=== PATIENT | male | born 1975 | race Caucasian/White ===

== ENCOUNTER 2017-05-20 12:00 | Emergency (ER) | payer OTHER ==
[2017-05-20 12:27] VITALS: RESP 18
[2017-05-20] MEDS ORDERED: LORazepam 2 MG/ML INJ IVP ONE (13:23)
[2017-05-20] MEDS ORDERED: ONDANSETRON 4 MG/2 ML VIAL IVP ONE (13:24)
[2017-05-20] MEDS ORDERED: NS 1,000 ML IV ONE (13:24)
--- NOTE | 2017-05-20 13:31 | EDPHY ---
H & P Smoking Status: Never smoked Time Seen by Provider: 05/20/17 12:56 HPI/ROS: CHIEF COMPLAINT: Alcohol withdrawal, vomiting HISTORY OF PRESENT ILLNESS: 42-year-old male presents to the emergency department with alcohol withdrawal. Patient has been drinking heavily over the last week. He he typically drinks a 5th of whiskey. He last drank yesterday morning. He has been vomiting since 7 o'clock this morning. He wishes to stop drinking alcohol. He has had alcohol withdrawal seizure in the past. He feels tremulous, nausea and pain all over. No reported trauma. He denies any other substance abuse. He denies chest pain or difficulty breathing. Denies abdominal pain. He still feels slightly nauseous. He last vomited at 10 o' clock this morning. REVIEW OF SYSTEMS: Constitutional: No fever, no chills. Eyes: No double or blurry vision. ENT: No sore throat. Respiratory: No cough, no shortness of breath. Cardiac: No chest pain. Gastrointestinal: Vomiting as above. No diarrhea or abdominal pain. Genitourinary: No dysuria. Musculoskeletal: No neck or back pain. Skin: No rashes. Neurological: No headache. (Ashanti Lamar) Past Medical/Surgical History: Alcoholism (Ashanti Lamar) Social History: (Ashanti Lamar) Physical Exam: General Appearance: Alert, no distress. Tremulous. Family at bedside. Eyes: Pupils equal and round. Extraocular motions are all intact. ENT: Mouth: Mucous membranes dry. Respiratory: No wheezing, rhonchi, or rales, lungs are clear to auscultation. Cardiovascular: Regular rate and rhythm. Gastrointestinal: Abdomen is soft and nontender, no masses, no rebound or guarding, bowel sounds normal. Neurological: Alert and oriented x 3, cranial nerves II through XII grossly intact Skin: Warm and dry, no rashes. Musculoskeletal: Nontender to palpate along the cervical, thoracic or lumbar spine. Neck is supple. Extremities: Full range of motion and no peripheral edema. Psychiatric: Patient is oriented X 3, there is no agitation. (Ashanti Lamar) Constitutional: Initial Vital Signs Temperature (C) 36.5 C 05/20/17 12:25 Heart Rate 89 05/20/17 12:25 Respiratory Rate 18 05/20/17 12:25 Blood Pressure 155/107 H 05/20/17 12:25 O2 Sat (%) 98 05/20/17 12:25 O2 Delivery Mode Room Air Allergies/Adverse Reactions: No Known Allergies Allergy (Verified 09/12/15 23:45) Home Medications: Medication Instructions Recorded LORazepam [Ativan] 1 mg PO Q6-8PRN PRN #10 tab 05/20/17 Propranolol HCl 05/20/17 Medical Decision Making ED Course/Re-evaluation: The patient was evaluated and managed by the physician's assistant county engineer. My cosignature indicates that I reviewed the chart and I agree with the findings and plan of care as documented. I am the secondary supervising physician. ( Princess Ochoa) Patient had IV established and laboratory studies were drawn. He received 1 mg of Ativan IV, 4 mg of Zofran IV and IV normal saline. The patient was tolerating p.o. fluids. Laboratory studies were unremarkable. He does not want to be discharged to the addiction recovery Center. He is comfortable being discharged home. (Ashanti Lamar) Differential Diagnosis: Including but not limited to alcohol withdrawal, electrolyte abnormality, dehydration (Ashanti Lamar) - Data Points Laboratory Results: Laboratory Results 05/20/17 13:40 05/20/17 13:40 05/20/17 05/20/17 05/20/17 13:40 13:40 13:40 WBC 15.06 10^3/uL H 10^3/uL (3.80-9.50) RBC 5.50 10^6/uL 10^6/uL (4.40-6.38) Hgb 16.3 g/dL g/dL (13.7-17.5) Hct 45.7 % % (40.0-51.0) MCV 83.1 fL fL (81.5-99.8) MCH 29.6 pg pg (27.9-34.1) MCHC 35.7 g/dL g/dL (32.4-36.7) RDW 12.9 % % (11.5-15.2) Plt Count 188 10^3/uL 10^3/uL (150-400) MPV 9.7 fL fL (8.7-11.7) Neut % (Auto) 86.3 % H % (39.3-74.2) Lymph % (Auto) 7.2 % L % (15.0-45.0) [place] % (Auto) 5.6 % % (4.5-13.0) Eos % (Auto) 0.3 % L % (0.6-7.6) Baso % (Auto) 0.3 % % (0.3-1.7) Nucleat RBC Rel Count 0.0 % % (0.0-0.2) Absolute Neuts (auto) 13.00 10^3/uL H 10^3/uL (1.70-6.50) Absolute Lymphs (auto) 1.08 10^3/uL 10^3/uL (1.00-3.00) Absolute Monos (auto) 0.85 10^3/uL H 10^3/uL (0.30-0.80) Absolute Eos (auto) 0.04 10^3/uL 10^3/uL (0.03-0.40) Absolute Basos (auto) 0.04 10^3/uL 10^3/uL (0.02-0.10) Absolute Nucleated RBC 0.00 10^3/uL 10^3/uL (0-0.01) Immature Gran % 0.3 % % (0.0-1.1) Immature Gran # 0.05 10^3/uL 10^3/uL (0.00-0.10) PT 13.4 SEC SEC (12.0-15.0) INR 1.03 (0.83-1.16) APTT 32.6 SEC SEC (23.0-38.0) Sodium 135 mEq/L mEq/L (134-144) Potassium 4.3 mEq/L mEq/L (3.5-5.2) Chloride 98 mEq/L mEq/L (97-110) Carbon Dioxide 25 mEq/l mEq/l (22-31) Anion Gap 12 mEq/L mEq/L (8-16) BUN 14 mg/dL mg/dL (7-23) Creatinine 0.6 mg/dL L mg/dL (0.7-1.3) Estimated GFR > 60 Glucose 114 mg/dL H mg/dL (70-100) Calcium 9.4 mg/dL mg/dL (8.5-10.4) Total Bilirubin 2.1 mg/dL H mg/dL (0.1-1.4) Conjugated Bilirubin 0.3 mg/dL mg/dL (0.0-0.5) Unconjugated Bilirubin 1.8 mg/dL H mg/dL (0.0-1.1) AST 42 IU/L IU/L (17-59) ALT 59 IU/L IU/L (21-72) Alkaline Phosphatase 77 IU/L IU/L (38-126) Total Protein 7.6 g/dL g/dL (6.3-8.2) Albumin 4.6 g/dL g/dL (3.5-5.0) Ethyl Alcohol < 10 mg/dL mg/dL (0-10) Medications Given: Discontinued Medications Sodium Chloride (Ns) 1,000 mls @ 0 mls/hr IV EDNOW ONE; Wide Open PRN Reason: Protocol Stop: 05/20/17 13:25 Last Admin: 05/20/17 13:49 Dose: 1,000 mls Lorazepam (Ativan Injection) 1 mg IVP EDNOW ONE Stop: 05/20/17 13:24 Last Admin: 05/20/17 13:49 Dose: 1 mg Ondansetron HCl (Zofran) 4 mg IVP EDNOW ONE Stop: 05/20/17 13:25 Last Admin: 05/20/17 13:48 Dose: 4 mg Departure - Departure Disposition: Home, Routine, Self-Care Clinical Impression: Alcoholic intoxication Qualifiers: Complication of substance-induced condition: uncomplicated Qualified Code(s): F10.920 - Alcohol use, unspecified with intoxication, uncomplicated Alcohol dependence Qualifiers: Substance use status: uncomplicated Qualified Code(s): F10.20 - Alcohol dependence, uncomplicated Condition: Good Instructions: Alcohol Intoxication (ED) Additional Instructions: You should follow up at the Addiction recovery Center the regarding her alcohol addiction. You may continue to use Ativan as prescribed every 6 hours as needed for symptoms of feeling anxious and tremulous. Caution this medication will make you very tired. Return to the emergency department sooner if you develop alcohol withdrawal seizure, recurring vomiting, or if you feel worse in any way. Referrals: [facility] [Outside] - As per Instructions Prescriptions: LORazepam [Ativan] 1 mg PO Q6-8PRN PRN #10 tab PRN Reason: P.r.n. tremors
[2017-05-20 13:46] LABS: % IMMATURE GRANULYOCYTES 0.3 % (0.0-1.1); ABSOLUTE IMMATURE GRANULOCYTES 0.05 10^3/uL (0.00-0.10); ADD DIFF? NO; ADD MORPH? NO; ADD SCAN? NO; ATYPICAL LYMPHOCYTE FLAG 0 (0-99); FRAGMENT RBC FLAG 0 (0-99); HEMATOCRIT 45.7 % (40.0-51.0); HEMOGLOBIN 16.3 g/dL (13.7-17.5); LEFT SHIFT FLG 0 (0-99); LIPEMIA HEMOLYSIS FLAG 90 (0-99); MEAN CELL HEMOGLOBIN 29.6 pg (27.9-34.1); MEAN CELL HEMOGLOBIN CONCENTR. 35.7 g/dL (32.4-36.7); MEAN CELL VOLUME 83.1 fL (81.5-99.8); MEAN PLATELET VOLUME 9.7 fL (8.7-11.7); PLATELET CLUMPS FLAG 0 (0-99); PLATELET COUNT 188 10^3/uL (150-400); RED CELL DISTRIBUTION WIDTH 12.9 % (11.5-15.2)
[2017-05-20 13:55] LABS: APTT 32.6 SEC (23.0-38.0); INR 1.03 (0.83-1.16); PROTIME(PATIENT) 13.4 SEC (12.0-15.0)
[2017-05-20 14:00] LABS: ALANINE AMINOTRANSFERASE 59 IU/L (21-72); ALBUMIN 4.6 g/dL (3.5-5.0); ALKALINE PHOSPHATASE 77 IU/L (38-126); ANION GAP 12 mEq/L (8-16); ASPARTATE AMINOTRANSFERASE 42 IU/L (17-59); BILIRUBIN,TOTAL 2.1 mg/dL (0.1-1.4); BILIRUBIN-CONJUGATED 0.3 mg/dL (0.0-0.5); BILIRUBIN-UNCONJUGATED 1.8 mg/dL (0.0-1.1); CALCIUM 9.4 mg/dL (8.5-10.4); CARBON DIOXIDE 25 mEq/l (22-31); CHLORIDE 98 mEq/L (97-110); CREATININE 0.6 mg/dL (0.7-1.3); ETHANOL SERUM < 10 mg/dL (0-10); GLOMERULAR FILTRATION RATE > 60; GLUCOSE 114 mg/dL (70-100); POTASSIUM 4.3 mEq/L (3.5-5.2); SODIUM 135 mEq/L (134-144); TOTAL PROTEIN 7.6 g/dL (6.3-8.2)
[2017-05-20 14:49] VITALS: O2SAT 94
[2017-05-20 15:50] VITALS: BP 164/112; PULSE 72; TEMP 98.4
== END 2017-05-20 15:50 | disposition home or self-care (01) ==
DX: F10.20 Alcohol dependence, uncomplicated (principal); E86.9 Volume depletion, unspecified
CPT/HCPCS: 96374; G0480; J2060; J2405

== ENCOUNTER 2017-06-15 18:46 | Emergency (ER) | payer OTHER ==
[2017-06-15] MEDS ORDERED: NS 1,000 ML IV ONE (19:29)
--- NOTE | 2017-06-15 19:34 | EDPHY ---
H & P Stated Complaint: etoh/has appt at [facility] tomorrow - Personal History Current Tetanus/Diphtheria Vaccine: Yes - Medical/Surgical History Hx Asthma: No Hx Chronic Respiratory Disease: No Hx Diabetes: No Hx Cardiac Disease: No Hx Renal Disease: No Hx Cirrhosis: No Hx Alcoholism: Yes Hx HIV/AIDS: No Hx Splenectomy or Spleen Trauma: No Other PMH: ETOH withdrawl SZ - Social History Smoking Status: Never smoked Time Seen by Provider: 06/15/17 19:20 HPI/ROS: CHIEF COMPLAINT: "I dunno, I just want to sleep" HISTORY OF PRESENT ILLNESS: This patient is an intoxicated 42 y/o male with history of alcoholism arriving with his significant other for evaluation of alcohol intoxication. His significant other states he has been drinking for seven days straight, and has discontinued his Antabuse-type medications as well as other prescriptions. She notes he has been agitated and aggressive, which is unusual for him. He has an appointment at [facility] tomorrow morning, where he has been admitted several times in the past for alcohol recovery. There were no beds available for him this evening. The patient states his last drink was this morning, but appears heavily intoxicated. The patient himself has no complaints. REVIEW OF SYSTEMS: A 10 point review of systems was unobtainable due to the patient's intoxication. (Samantha Sotomayor) - Medical/Surgical History PMH: 1. Alcoholism (Samantha Sotomayor) - Social History Additional Social History: Significant other at beside. Works as a senior net programmer. Lives in [place]. (Samantha Sotomayor) - Physical Exam Exam: General Appearance: Intoxicated, slurred speech Eyes: Pupils equal and round, no conjunctival pallor or injection ENT, Mouth: Mucous membranes moist Neck: Normal inspection Respiratory: Lungs are clear to auscultation Cardiovascular: Tachycardic Gastrointestinal: Abdomen is soft and non- tender Neurological: A&O, nonfocal, unable to walk Skin: Warm and dry, no rash Extremities: Nontender, no pedal edema Psychiatric: Mood and affect normal (Samantha Sotomayor) Constitutional: Initial Vital Signs Temperature (C) 37.1 C 06/15/17 18:52 Heart Rate 118 H 06/15/17 18:52 Respiratory Rate 20 06/15/17 18:52 Blood Pressure 154/104 H 06/15/17 18:52 O2 Sat (%) 93 06/15/17 18:52 O2 Delivery Mode Room Air O2 (L/minute) 2 Allergies/Adverse Reactions: No Known Allergies Allergy (Verified 06/15/17 18:50) Home Medications: Medication Instructions Recorded LORazepam [Ativan] 1 mg PO Q6-8PRN PRN #10 tab 05/20/17 Propranolol HCl 05/20/17 Disulfiram 06/15/17 Lisinopril 06/15/17 traZODone 06/15/17 Medical Decision Making ED Course/Re-evaluation: 42 y/o male presents with alcohol intoxication. IV established. Plan to assess EtOH levels. Plan to administer 1L IV NS for rehydration. Plan to discharge home in good condition when the patient is clinically sober. He will follow up for his scheduled appointment at [facility] tomorrow. He and his significant other are comfortable with this plan. (Samantha Sotomayor) 1224AM: I did go re-evaluate the patient is eager to be discharged from the emergency room so is his family at bedside. However they are requesting medication to help him go through withdrawal. I explained that he can go to our detox center with Librium however he has declined this option he does not want to go there and he would like to go home. I do feel that it is reasonable to given 50 mg here in the emergency room of Librium and 125 mg tab for home. He is clinically sober at this time no evidence withdrawal at this time. Plan will be to go home and then he plans to go to [facility] tomorrow. He understands if he has any worsening symptoms questions or concerns return emergency room. He is calm, cooperative, and okay with this plan. (Rigoberto Jade) - Data Points Laboratory Results: 06/15/17 19:47 Ethyl Alcohol 315 mg/dL H mg/dL (0-10) Medications Given: Discontinued Medications Sodium Chloride (Ns) 1,000 mls @ 0 mls/hr IV ONCE ONE; Wide Open PRN Reason: Protocol Stop: 06/15/17 19:30 Last Admin: 06/15/17 19:45 Dose: 1,000 mls Departure - Departure Disposition: Home, Routine, Self-Care Clinical Impression: Alcoholic intoxication Qualifiers: Complication of substance-induced condition: uncomplicated Qualified Code(s): F10.920 - Alcohol use, unspecified with intoxication, uncomplicated Condition: Good Instructions: Alcohol Intoxication (ED), Abuse of Alcohol (ED) Additional Instructions: Follow up with [facility] tomorrow as planned. Referrals: Donna Balderas MD [Medical Doctor] - As per Instructions Report Scribed for: Samantha Sotomayor Report Scribed by: Cathy Vega Date of Report: 06/15/17 Time of Report: 20:06 Physician Review and Approval Statement: 06/15/17 20:06 Portions of this note were transcribed by a medical historian. I personally performed a history, physical exam, medical decision making, and confirmed accuracy of information the transcribed note. (Samantha Sotomayor)
[2017-06-15 20:33] LABS: ETHANOL SERUM 315 mg/dL (0-10)
[2017-06-16] MEDS ORDERED: chlordiazePOXIDE 25 MG CAP PO ONE ×2 (00:23)
[2017-06-16 00:53] VITALS: BP 137/96; PULSE 98; RESP 18; TEMP 98.1; O2SAT 92
== END 2017-06-16 00:51 | disposition home or self-care (01) ==
PROC: 3E0337Z Introduction of Electrolytic and Water Balance Substance into Peripheral Vein, Percutaneous Approach (ICD-10-PCS; principal; 2017-06-15)
DX: F10.920 Alcohol use, unspecified with intoxication, uncomplicated (principal); E86.9 Volume depletion, unspecified
CPT/HCPCS: G0480

== ENCOUNTER 2017-11-18 16:56 | Emergency (ER) | payer OTHER ==
[2017-11-18 18:55] VITALS: TEMP 98.4
[2017-11-18] MEDS ORDERED: NS 1,000 ML IV ONE (19:10)
[2017-11-18] MEDS ORDERED: LORazepam 2 MG/ML INJ IVP ONE (19:10)
--- NOTE | 2017-11-18 19:10 | EDPHY ---
General - History Smoking Status: Never smoked Time Seen by Provider: 11/18/17 18:54 Narrative: CHIEF COMPLAINT: shortness of breath, possible anxiety, alcohol use HISTORY OF PRESENT ILLNESS: Patient at this time has no complaints of any kind. Earlier today around 3:00 p.m. He states that his significant other at bedside was concerned about him. This was due to him feeling short of breath. He said the abruptly felt very short of breath. This was concerning to him but lasted only 1 hr and then resolved. There was no chest pain of any kind at any time. No headache, neck pain, abdominal pain, nausea, vomiting or diaphoresis. This was not exertional. The significant other was concerned due to this and recent detox/ rehab therapy for alcohol abuse. He was discharged from [facility] on Monday and then began drinking again on Monday. He has had a half a bottle of wine frequently. Last intake was 4 hr ago. This is a normal quantity for him. At this time he has no complaints of any kind. No other associated complaints or modifying factors. REVIEW OF SYSTEMS: Ten systems reviewed and are negative unless otherwise noted in the HPI [facility]ISTS: Shree PAST MEDICAL HISTORY: Hypertension, alcohol abuse, bipolar disorder, anxiety PAST SURGICAL HISTORY: No recent surgeries SOCIAL HISTORY: Nonsmoker. Half bottle of wine per day of alcohol use. Last intake was 4 hr ago. FAMILY HISTORY: Noncontributory EXAMINATION General Appearance: Alert, no distress. Not diaphoretic. Well-developed well- nourished. Head: normocephalic, atraumatic Eyes: Pupils equal and round, no conjunctival pallor or injection ENT, Mouth: Mucous membranes moist Neck: Normal inspection, supple, non-tender Respiratory: Lungs are clear to auscultation. No wheezing rhonchi or crackles Cardiovascular: Tachycardic rate. Regular rhythm. No murmur. Gastrointestinal: Abdomen is soft and nontender Back: non-tender, no bony abnormalities Neurological: GCS 15. A&O, nonfocal, normal gait. Mild resting tremor. Normal [id number]. No pronator drift. Strength is symmetric in all 4 extremities. Skin: Warm and dry, no rash no petechiae or purpura Extremities: Nontender, no pedal edema Psychiatric: Mood and affect normal. Denies SI. Denies HI. DIFFERENTIAL DIAGNOSES: Including but not limited to anxiety, shortness of breath, pneumonia, ACS, PE, volume overload, alcohol withdrawal, DTs MDM: 7:10 p.m. Patient has no complaints at this time but did have some shortness of breath earlier today that he was concerned about. He is no longer concerned about this completely asymptomatic, but his significant other at bedside is requesting evaluation for this. He agrees with this and has consented to evaluation. I have ordered EKG, laboratory studies and chest x-ray. There is no evidence of delirium tremens. He is resting comfortably in no acute distress. 7:40 p.m. CBC and chemistry unremarkable. Troponin is pending. Chest x-ray pending. EKG has been reviewed. 7:50 p.m. Chest x-ray as read by me, without the aid of the radiologist, reveals no acute findings. 8:10 p.m. Patient re-evaluated. He is resting comfortably. Vital signs within normal limits. He has no complaints of any kind at this time. [facility] from alcohol and he is declining. At this time he would like to be discharged home. He is awake and alert in no acute distress. His GCS is 15 and he does have the capability of making this decision my opinion. He has no tremor. He has no evidence of DTs. His alcohol level is less than 200 and he does appear clinically sober. His significant other and brother at bedside are comfortable taking him home. We did discuss return to emergency department precautions and he is comfortable this plan. Recommend repeat evaluation in 24 hr or sooner if any return of symptoms. EKG interpretation: Dr.Kim Trinidad SUPERVISION: Patient was independently examined, but I discussed the case with my secondary supervising physician Dr. Shira Trinidad ([facility]) Discussion: The patient was evaluated and managed by the Physician Sample Wrapper. I discussed the patient's presentation and course with the midlevel provider with them and agree with the evaluation. My co-signature indicates that I have reviewed this chart and I agree with the findings and plan of care as documented. I am the secondary supervising physician. (Shira Trinidad) - Objective Vital Signs: Initial Vital Signs Temperature (C) 36.8 C 11/18/17 17:02 Heart Rate 114 H 11/18/17 17:02 Respiratory Rate 20 11/18/17 17:02 Blood Pressure 135/96 H 11/18/17 17:02 O2 Sat (%) 90 L 11/18/17 17:02 O2 Delivery Mode Room Air Allergies/Adverse Reactions: No Known Allergies Allergy (Verified 11/18/17 17:01) Home Medications: Medication Instructions Recorded LORazepam [Ativan] 1 mg PO Q6-8PRN PRN #10 tab 05/20/17 Propranolol HCl 05/20/17 Disulfiram 06/15/17 Lisinopril 06/15/17 traZODone 06/15/17 Laboratory Results: Laboratory Results 11/18/17 19:15 11/18/17 19:15 Medications Given: Discontinued Medications Sodium Chloride (Ns) 1,000 mls @ 0 mls/hr IV EDNOW ONE; Wide Open PRN Reason: Protocol Stop: 11/18/17 19:11 Last Admin: 11/18/17 19:17 Dose: 1,000 mls Lorazepam (Ativan Injection) 1 mg IVP EDNOW ONE Stop: 11/18/17 19:11 Last Admin: 11/18/17 19:22 Dose: 1 mg Departure - Departure Disposition: Home, Routine, Self-Care Clinical Impression: Anxiety reaction, Alcohol dependence Condition: Good Instructions: Anxiety (ED), Alcohol Dependence (ED) Additional Instructions: 1. Follow up with primary care physician on Monday 2. Return to the emergency department immediately should you change her mind about detoxification 3. Return to emergency department immediately for any chest pain, return of shortness of breath, anxiety, seizure-like activity Referrals: [facility] [Outside] - As per Instructions [facility] [Outside] - As per Instructions
--- NOTE | 2017-11-18 19:20 | CPEKG ---
Heart Rate: 94 RR Interval: 638 P-R Interval: 144 QRSD Interval: 82 QT Interval: 336 QTC Interval: 421 P Adams: 57 QRS Adams: 24 T Wave Adams: 37 EKG Severity - ABNORMAL ECG - EKG Impression: SINUS TACHYCARDIA EKG Impression: PAIRED VENTRICULAR PREMATURE COMPLEXES Electronically Signed By: Shira Trinidad 18-Nov-2017 23:02:18
[2017-11-18 19:24] VITALS: PULSE 95; RESP 18
[2017-11-18 19:25] LABS: PLATELET COUNT 241 10^3/uL (150-400)
[2017-11-18 20:47] VITALS: BP 137/100; O2SAT 94
== END 2017-11-18 20:46 | disposition home or self-care (01) ==
DX: F41.1 Generalized anxiety disorder (principal); F10.20 Alcohol dependence, uncomplicated; I10 Essential (primary) hypertension; E86.9 Volume depletion, unspecified
CPT/HCPCS: 96374; G0480; J2060

== ENCOUNTER 2018-07-24 20:00 | Emergency (ER) | payer OTHER ==
--- NOTE | 2018-07-24 20:27 | EDPHY ---
H & P Stated Complaint: M1, SI Source: Police, RN/MD Exam Limitations: Clinical condition - Personal History Current Tetanus/Diphtheria Vaccine: Yes Tetanus Vaccine Date: < 10 years - Medical/Surgical History Hx Asthma: No Hx Chronic Respiratory Disease: No Hx Diabetes: No Hx Cardiac Disease: No Hx Renal Disease: No Hx Cirrhosis: No Hx Alcoholism: Yes Hx HIV/AIDS: No Hx Splenectomy or Spleen Trauma: No Other PMH: ETOH withdrawl SZ, HTN. bipolar, anxiety - Social History Smoking Status: Never smoked Time Seen by Provider: 07/24/18 20:24 HPI/ROS: HPI: This is a 43-year-old male who presents with Chief Complaint: M1 hold, suicidal ideation Location: psych Quality: M1 hold, suicidal ideation Duration: Unknown Signs and Symptoms: no auditory hallucinations, no visual hallucinations, + suicidal ideation with a plan, no homicidal ideation, no paranoia Timing: Unknown Severity: Moderate to severe Context: Patient presents via a [facility] Police on M1 hold for suicidal ideation. Patient's girlfriend and older brother are concerned about the patient's behavior. Patient was just released from [facility] from detox secondary to alcohol use. Patient started drinking within the hour again from being discharged from alcohol rehab and detox. Patient was intoxicated when girlfriend came home this evening allegedly became aggressive. He took the car keys and wanted to drive. Brother had to stop him from driving. Patient sent a text to brother that he had enough to drink himself to . Admits alcohol use to me. Modifying Factors: None Comment: ROS: A comprehensive 10 system review of systems is otherwise negative aside from elements mentioned in the history of present illness. MEDICAL/SURGICAL/SOCIAL HISTORY: Medical history: ETOH withdrawl SZ, HTN, bipolar, anxiety Surgical history: Left hip replacement Social history: Denies drug use. Family history noncontributory. CONSTITUTIONAL: Untidy, disheveled, intoxicated, middle-aged white male, awake and alert, no obvious distress HEENT: Atraumatic and normocephalic, PERRL, EOMI. Nares patent; no rhinorrhea; no nasal mucosal edema. Tympanic membranes clear. Oropharynx clear, no exudate and moist pink mucosa. Airway patent. No lymphadenopathy. No meningismus. Cardiovascular: Normal S1/S2, tachycardia, regular rhythm, without murmur rub or gallop. PULMONARY/CHEST: Symmetrical and nontender. Clear to auscultation bilaterally. Good air movement. No accessory muscle usage. ABDOMEN: Soft, nondistended, nontender, no rebound, no guarding, no peritoneal signs, no masses or organomegaly. No CVAT. EXTREMITIES: 2/2 pulses, strength 5/5, no deformities, no clubbing, no cyanosis or edema. NEUROLOGICAL: no focal neuro deficits. GCS 15. SKIN: Warm and dry, no erythema. no rash. Good capillary refill. PSYCH: Poor eye contact, no flight of ideas, disorganized thought process, poor insight and judgment, no auditory hallucinations, no visual hallucinations, + suicidal ideation with a plan, no homicidal ideation, no paranoia (Jennifer Osorio) Constitutional: Initial Vital Signs Temperature (C) 36.9 C 07/24/18 20:06 Heart Rate 123 H 07/24/18 20:06 Respiratory Rate 18 07/24/18 20:06 Blood Pressure 154/111 H 07/24/18 20:06 O2 Sat (%) 93 07/24/18 20:06 O2 Delivery Mode Room Air Allergies/Adverse Reactions: No Known Allergies Allergy (Verified 07/24/18 20:07) Home Medications: Medication Instructions Recorded LORazepam [Ativan] 1 mg PO Q6-8PRN PRN #10 tab 05/20/17 Propranolol HCl 05/20/17 Disulfiram 06/15/17 Lisinopril 06/15/17 traZODone 06/15/17 Hydroxyzine HCl 07/24/18 Latuda 07/24/18 Medical Decision Making ED Course/Re-evaluation: Agree with M1 hold upon arrival taken out at 1914. Patient is currently calm and cooperative. Labs and UDS ordered. Patient is clearly intoxicated, became aggressive and made suicidal statements that were passive in nature. 2123: Labs reviewed and grossly unremarkable. Urine drug screen positive for benzodiazepine. PDGF=[id number] 0000: End of shift. Signed over to Dr. Logan pending once more sober for mental health evaluation in the a.m. This patient was seen under the supervision of my secondary supervising physician. I evaluated care for this patient independently. Discussed this patient with Dr. Moss. (Jennifer Osorio) The patient was stable throughout my shift. She is awaiting mental health evaluation once sober this morning. (Stacey Logan) Differential Diagnosis: Differential diagnosis includes but is not limited to major depression, anxiety disorder, schizophrenia, bipolar disorder, intoxicant use, suicidal ideation, psychosis, terell. (Jennifer Osorio) Other Provider: I assumed care of the patient at 0700am. 9:00 a.m.: The patient was evaluated by the mental health team. He has been accepted for psychiatric admission at [facility] by Dr. Campuzano. I have filled out the EMTALA transfer form. (Juan Giron) - Data Points Laboratory Results: Laboratory Results 07/24/18 20:11 07/24/18 20:11 07/24/18 21:03 Urine Opiates Screen NEGATIVE (NEGATIVE) Urine Barbiturates NEGATIVE (NEGATIVE) Ur Phencyclidine Scrn NEGATIVE (NEGATIVE) Ur Amphetamine Screen NEGATIVE (NEGATIVE) U Benzodiazepines Scrn NON-NEGATIVE H (NEGATIVE) Urine Cocaine Screen NEGATIVE (NEGATIVE) U Marijuana (THC) Screen NEGATIVE (NEGATIVE) Medications Given: Discontinued Medications Trazodone HCl (Trazodone) 50 mg PO EDNOW ONE Stop: 07/24/18 23:44 Last Admin: 07/24/18 23:48 Dose: 50 mg Departure - Departure Disposition: Other Psych, Not [place] Clinical Impression: Alcoholic intoxication without complication, Suicidal ideations, Alcohol abuse with alcohol-induced disorder Referrals: An Owen MD [Primary Care Provider] - As per Instructions
[2018-07-24 20:36] LABS: PLATELET COUNT 248 10^3/uL (150-400)
[2018-07-24] MEDS ORDERED: traZODone 50 MG TAB PO ONE (23:43)
--- NOTE | 2018-07-25 08:51 | ASMTTCLDSP ---
[facility] Discharge Disposition Disposition: Answers: Transfer Disposition Notes: Notes: Transfer to [facility] under Dr. Meliza Campuzano MD. Discharge Concerns/Recommendations: Notes: In consultation with [facility] ED physician, Alec Giron MD, Dr. Giron concurred that pt appears to meet 27-65 criteria requiring psychiatric hospitalization as pt appears to be an imminent risk of harm to self due to a mental illness condition. Was patient given the Answers: Not applicable Inpatient Behavioral Health Prohibited Belongings List while in the ED? Type of Hold: Answers: M1/72-hour Hold Hold initiated by: Answers: Police For Transfers, Accepting [facility] Facility: For Transfers, Accepting Meliza Campuzano MD Psychiatrist: For Transfers, Reason Dual diagnosis and continuity of care, as pt was Patient is Being just discharged from [facility] yesterday. Transferred: Date Signed: 07/25/2018 08:50 AM Electronically Signed By:Gustavo Hensley
[2018-07-25] MEDS ORDERED: RANITIDINE SYRUP 15 MG/1 ML UDSYR PO STA (11:24)
[2018-07-25] MEDS ORDERED: FAMOTIDINE 20 MG TAB PO ONE ×2 (11:45→12:07)
[2018-07-25 12:57] VITALS: BP 128/97
== END 2018-07-25 12:48 ==
DX: F10.120 Alcohol abuse with intoxication, uncomplicated (principal); R45.851 Suicidal ideations; Y90.6 Blood alcohol level of 120-199 mg/100 ml
CPT/HCPCS: 80305; G0480